=== PATIENT | male | born 1935 | race Caucasian/White ===

== ENCOUNTER 2016-10-22 13:24 | Outpatient (RCR) | payer OTHER, MEDICARE ==
--- OUTSIDE RECORDS SUMMARY | 2016-08-23 13:35 | XMS REPORT | Continuity of Care Document ---
Author Author [facility] Organization [facility] Address Unknown Phone Unavailable Care Team Providers Care Motor Vehicle Clerk Name Role Phone Светлана Wilson PCP [phone] Source Comments Some departments are not documenting in the electronic medical record. If you do not see the information that you expected, contact Release of Information in the Health Information Management department at [phone] for further assistance in locating additional records.[facility] Active Allergies and Adverse Reactions No Known Allergies Current Medications Prescription Sig. Disp. Refills Start End Date Status Date metoprolol (LOPRESSOR) 50 Take 25 mg by mouth twice Active mg tablet daily. insulin aspart (NOVOLOG) Inject 0-28 Units into 3 box 11/17/20 Active 100 unit/mL flexPEN area(s) as directed five 13 times daily. insulin glargine (LANTUS Inject 15 Units into 3 box 11/17/20 Active SOLOSTAR) 100 unit/mL (3 area(s) as directed at 13 mL) injection PEN bedtime daily. ipratropium (ATROVENT) Inhale 2.5 mL by mouth 1 Bottle 11/17/20 Active 0.02 % nebulizer solution every 6 hours as needed. 13 bisacodyl (DULCOLAX) 10 Insert or Apply 1 11/17/20 Active mg rectal suppository Suppository to rectal 13 area as directed daily. albuterol 0.5% Inhale 0.5 mL solution as 30 Vial 11/17/20 Active (PROVENTIL; VENTOLIN) 2.5 directed every 6 hours as 13 mg/0.5 mL nebu nebulizer needed. solution capsaicin 0.025 % topical Apply to affected area 1 Container 11/17/20 Active cream 13 famotidine (PEPCID) 40 2.5 mL by Per J Tube 1 Bottle 11/17/20 Active mg/5 mL susp oral route twice daily. 13 suspension lidocaine (LIDODERM) 5 % Apply to affected area, 30 Patch 11/17/20 Active topical patch 12 hours on, 12 hours off 13 ondansetron (ZOFRAN) 4 Administer 2 mL through 11/17/20 Active mg/2 mL soln vein every 6 hours as 13 needed. oxyCODone (ROXICODONE) 1 5-10 mL every 4 hours as 1 Bottle 3 11/17/20 Active mg/mL oral solution needed 13 tamsulosin (FLOMAX) 0.4 Take 1 Cap by mouth daily 90 Cap 11/17/20 Active mg capsule after breakfast. 13 warfarin (COUMADIN) 10 mg Take 0.5 Tabs by mouth at 90 Tab 0 11/17/20 Active tablet bedtime daily. 13 acetaminophen (TYLENOL) Take 500 mg by mouth Active 500 mg tablet every 6 hours as needed. Food Supplement, Take 65 mL by mouth three Active Lactose-Free (OSMOLITE 1 times daily. TIAGO) liqd cephalexin (KEFLEX) 500 Take 500 mg by mouth four Active mg capsule times daily. phenazopyridine Take 200 mg by mouth Active (PYRIDIUM) 200 mg tablet three times daily. Active Problems Problem Noted Date Esophageal cancer (HCC) 10/13/2013 Social History Tobacco Use Types Packs/Day Years Used Date Former Smoker Cigarettes 1 15 Quit: 11/18/1969 Smokeless Tobacco: Former Quit: User 11/18/1969 Alcohol Use Drinks/Week oz/Week Comments Yes 1 Cans of 0.6 occasionally beer Last Filed Vital Signs Vital Sign Reading Time Taken Blood Pressure 144/85 12/29/2013 11:16 AM SHOP SUPERVISOR Pulse 55 12/29/2013 11:16 AM SHOP SUPERVISOR Temperature 36.3 C (97.4 F) 12/29/2013 11:16 AM SHOP SUPERVISOR Respiratory Rate - - Height 1.829 m (6' 0.01") 01/01/2014 4:00 PM SHOP SUPERVISOR Weight 92.806 kg (204 lb 9.6 oz) 01/01/2014 4:00 PM SHOP SUPERVISOR Body Mass Index 27.74 01/01/2014 4:00 PM SHOP SUPERVISOR Oxygen Saturation 94% 12/29/2013 11:16 AM SHOP SUPERVISOR Plan of Care Health Maintenance Due Date Last Done Comments Physical (Comprehensive) 1942 Exam Pertussis Vaccine 1946 Tetanus Vaccine 1952 Shingles Vaccine 1995 Prevnar/Pneumovax (#1) 2000 Influenza Vaccine 07/19/2016 Results from Last 3 Months Not on file
[2016-08-23 13:48] LABS: BASOPHILS % (AUTO) 0 % (0-10); EOSINOPHILS # (AUTO) 0.1 10^3/uL (0.0-0.3); EOSINOPHILS % (AUTO) 1 % (0-10); LYMPHOCYTES # (AUTO) 0.6 X 10^3 (1.0-4.0); LYMPHOCYTES % (AUTO) 18 % (12-44); MEAN CORPUSCULAR HEMOGLOBIN 32 PG (25-34); MEAN CORPUSCULAR HGB CONC 33 G/DL (32-36); MEAN CORPUSCULAR VOLUME 95 FL (80-99); MEAN PLATELET VOLUME 8.8 FL (7.4-10.4); MONOCYTES # (AUTO) 0.3 X 10^3 (0.0-1.0); MONOCYTES % (AUTO) 9 % (0-12); NEUTROPHILS # (AUTO) 2.6 X 10^3 (1.8-7.8); NEUTROPHILS % (AUTO) 72 % (42-75); PLATELET COUNT 149 10^3/uL (130-400); RED BLOOD COUNT 3.95 10^6/uL (4.35-5.85); RED CELL DISTRIBUTION WIDTH 16.7 % (10.0-14.5); WHITE BLOOD COUNT 3.6 10^3/uL (4.3-11.0)
[2016-08-23 14:27] LABS: ANION GAP 10 MMOL/L (5-14); BLOOD UREA NITROGEN 20 MG/DL (7-18); BUN/CREATININE RATIO 20; CALCIUM 8.6 MG/DL (8.5-10.1); CARBON DIOXIDE 21 MMOL/L (21-32); CHLORIDE 109 MMOL/L (98-107); CREATININE SERUM 1.01 MG/DL (0.60-1.30); GFR ESTIMATED > 60; GLUCOSE 210 MG/DL (70-105); POTASSIUM 4.3 MMOL/L (3.6-5.0); SODIUM 140 MMOL/L (135-145)
[2016-08-30 08:55] LABS: BASOPHILS % (AUTO) 0 % (0-10); EOSINOPHILS # (AUTO) 0.1 10^3/uL (0.0-0.3); EOSINOPHILS % (AUTO) 2 % (0-10); LYMPHOCYTES # (AUTO) 0.7 X 10^3 (1.0-4.0); LYMPHOCYTES % (AUTO) 19 % (12-44); MEAN CORPUSCULAR HEMOGLOBIN 33 PG (25-34); MEAN CORPUSCULAR HGB CONC 34 G/DL (32-36); MEAN CORPUSCULAR VOLUME 96 FL (80-99); MEAN PLATELET VOLUME 8.6 FL (7.4-10.4); MONOCYTES # (AUTO) 0.3 X 10^3 (0.0-1.0); MONOCYTES % (AUTO) 9 % (0-12); NEUTROPHILS # (AUTO) 2.4 X 10^3 (1.8-7.8); NEUTROPHILS % (AUTO) 69 % (42-75); PLATELET COUNT 160 10^3/uL (130-400); RED BLOOD COUNT 3.83 10^6/uL (4.35-5.85); RED CELL DISTRIBUTION WIDTH 17.4 % (10.0-14.5); WHITE BLOOD COUNT 3.4 10^3/uL (4.3-11.0)
[2016-08-30 09:17] LABS: ANION GAP 8 MMOL/L (5-14); BLOOD UREA NITROGEN 20 MG/DL (7-18); BUN/CREATININE RATIO 21; CALCIUM 8.6 MG/DL (8.5-10.1); CARBON DIOXIDE 24 MMOL/L (21-32); CHLORIDE 109 MMOL/L (98-107); CREATININE SERUM 0.95 MG/DL (0.60-1.30); GFR ESTIMATED > 60; GLUCOSE 172 MG/DL (70-105); POTASSIUM 3.9 MMOL/L (3.6-5.0); SODIUM 141 MMOL/L (135-145)
[2016-09-06 09:16] LABS: BASOPHILS % (AUTO) 1 % (0-10); EOSINOPHILS # (AUTO) 0.1 10^3/uL (0.0-0.3); EOSINOPHILS % (AUTO) 2 % (0-10); LYMPHOCYTES # (AUTO) 0.5 X 10^3 (1.0-4.0); LYMPHOCYTES % (AUTO) 12 % (12-44); MEAN CORPUSCULAR HEMOGLOBIN 33 PG (25-34); MEAN CORPUSCULAR HGB CONC 34 G/DL (32-36); MEAN CORPUSCULAR VOLUME 97 FL (80-99); MEAN PLATELET VOLUME 9.3 FL (7.4-10.4); MONOCYTES # (AUTO) 0.4 X 10^3 (0.0-1.0); MONOCYTES % (AUTO) 10 % (0-12); NEUTROPHILS # (AUTO) 3.3 X 10^3 (1.8-7.8); NEUTROPHILS % (AUTO) 76 % (42-75); PLATELET COUNT 143 10^3/uL (130-400); RED BLOOD COUNT 3.83 10^6/uL (4.35-5.85); RED CELL DISTRIBUTION WIDTH 17.7 % (10.0-14.5); WHITE BLOOD COUNT 4.3 10^3/uL (4.3-11.0)
[2016-09-06 09:35] LABS: ALANINE AMINOTRANSFERASE 14 U/L (0-55); ALBUMIN 3.6 G/DL (3.2-4.5); ANION GAP 8 MMOL/L (5-14); ASPARTATE AMINO TRANSFERASE 18 U/L (5-34); BILIRUBIN,TOTAL 0.8 MG/DL (0.1-1.0); BLOOD UREA NITROGEN 17 MG/DL (7-18); BUN/CREATININE RATIO 20; CALCIUM 8.5 MG/DL (8.5-10.1); CARBON DIOXIDE 22 MMOL/L (21-32); CHLORIDE 111 MMOL/L (98-107); CREATININE SERUM 0.83 MG/DL (0.60-1.30); GFR ESTIMATED > 60; GLUCOSE 138 MG/DL (70-105); POTASSIUM 3.9 MMOL/L (3.6-5.0); SODIUM 141 MMOL/L (135-145); TOTAL PROTEIN 6.2 G/DL (6.4-8.2)
[2016-09-13 10:15] LABS: BASOPHILS % (AUTO) 0 % (0-10); EOSINOPHILS # (AUTO) 0.1 10^3/uL (0.0-0.3); EOSINOPHILS % (AUTO) 1 % (0-10); LYMPHOCYTES # (AUTO) 0.7 X 10^3 (1.0-4.0); LYMPHOCYTES % (AUTO) 13 % (12-44); MEAN CORPUSCULAR HEMOGLOBIN 32 PG (25-34); MEAN CORPUSCULAR HGB CONC 33 G/DL (32-36); MEAN CORPUSCULAR VOLUME 96 FL (80-99); MEAN PLATELET VOLUME 9.4 FL (7.4-10.4); MONOCYTES # (AUTO) 0.5 X 10^3 (0.0-1.0); MONOCYTES % (AUTO) 10 % (0-12); NEUTROPHILS % (AUTO) 75 % (42-75); PLATELET COUNT 160 10^3/uL (130-400); RED CELL DISTRIBUTION WIDTH 17.3 % (10.0-14.5); WHITE BLOOD COUNT 5.3 10^3/uL (4.3-11.0)
[2016-09-13 10:37] LABS: ANION GAP 3 MMOL/L (5-14); BLOOD UREA NITROGEN 17 MG/DL (7-18); BUN/CREATININE RATIO 21; CALCIUM 8.4 MG/DL (8.5-10.1); CARBON DIOXIDE 28 MMOL/L (21-32); CHLORIDE 107 MMOL/L (98-107); CREATININE SERUM 0.82 MG/DL (0.60-1.30); GFR ESTIMATED > 60; GLUCOSE 115 MG/DL (70-105); POTASSIUM 4.1 MMOL/L (3.6-5.0); SODIUM 138 MMOL/L (135-145)
[2016-09-20 13:11] LABS: BASOPHILS % (AUTO) 1 % (0-10); EOSINOPHILS # (AUTO) 0.1 10^3/uL (0.0-0.3); EOSINOPHILS % (AUTO) 3 % (0-10); LYMPHOCYTES # (AUTO) 0.6 X 10^3 (1.0-4.0); LYMPHOCYTES % (AUTO) 14 % (12-44); MEAN CORPUSCULAR HEMOGLOBIN 32 PG (25-34); MEAN CORPUSCULAR HGB CONC 34 G/DL (32-36); MEAN CORPUSCULAR VOLUME 96 FL (80-99); MEAN PLATELET VOLUME 8.8 FL (7.4-10.4); MONOCYTES # (AUTO) 0.2 X 10^3 (0.0-1.0); MONOCYTES % (AUTO) 6 % (0-12); NEUTROPHILS # (AUTO) 3.1 X 10^3 (1.8-7.8); NEUTROPHILS % (AUTO) 77 % (42-75); PLATELET COUNT 193 10^3/uL (130-400); RED BLOOD COUNT 3.67 10^6/uL (4.35-5.85); RED CELL DISTRIBUTION WIDTH 16.2 % (10.0-14.5); WHITE BLOOD COUNT 4.1 10^3/uL (4.3-11.0)
[2016-09-20 13:33] LABS: ANION GAP 6 MMOL/L (5-14); BLOOD UREA NITROGEN 18 MG/DL (7-18); BUN/CREATININE RATIO 18; CALCIUM 8.3 MG/DL (8.5-10.1); CARBON DIOXIDE 23 MMOL/L (21-32); CHLORIDE 110 MMOL/L (98-107); CREATININE SERUM 0.99 MG/DL (0.60-1.30); GFR ESTIMATED > 60; GLUCOSE 188 MG/DL (70-105); POTASSIUM 3.9 MMOL/L (3.6-5.0); SODIUM 139 MMOL/L (135-145)
[2016-09-27 10:52] LABS: BASOPHILS % (AUTO) 0 % (0-10); EOSINOPHILS # (AUTO) 0.2 10^3/uL (0.0-0.3); EOSINOPHILS % (AUTO) 6 % (0-10); LYMPHOCYTES # (AUTO) 0.6 X 10^3 (1.0-4.0); LYMPHOCYTES % (AUTO) 14 % (12-44); MEAN CORPUSCULAR HEMOGLOBIN 33 PG (25-34); MEAN CORPUSCULAR HGB CONC 34 G/DL (32-36); MEAN CORPUSCULAR VOLUME 97 FL (80-99); MONOCYTES # (AUTO) 0.3 X 10^3 (0.0-1.0); MONOCYTES % (AUTO) 8 % (0-12); NEUTROPHILS # (AUTO) 2.9 X 10^3 (1.8-7.8); NEUTROPHILS % (AUTO) 72 % (42-75); PLATELET COUNT 194 10^3/uL (130-400); RED CELL DISTRIBUTION WIDTH 16.9 % (10.0-14.5)
[2016-09-27 11:56] LABS: ANION GAP 6 MMOL/L (5-14); BLOOD UREA NITROGEN 15 MG/DL (7-18); BUN/CREATININE RATIO 18; CALCIUM 8.5 MG/DL (8.5-10.1); CARBON DIOXIDE 26 MMOL/L (21-32); CHLORIDE 110 MMOL/L (98-107); CREATININE SERUM 0.85 MG/DL (0.60-1.30); GFR ESTIMATED > 60; GLUCOSE 81 MG/DL (70-105); POTASSIUM 3.9 MMOL/L (3.6-5.0); SODIUM 142 MMOL/L (135-145)
[2016-10-04 14:10] LABS: BASOPHILS % (AUTO) 1 % (0-10); EOSINOPHILS # (AUTO) 0.2 10^3/uL (0.0-0.3); EOSINOPHILS % (AUTO) 6 % (0-10); LYMPHOCYTES # (AUTO) 0.7 X 10^3 (1.0-4.0); LYMPHOCYTES % (AUTO) 20 % (12-44); MEAN CORPUSCULAR HEMOGLOBIN 32 PG (25-34); MEAN CORPUSCULAR HGB CONC 34 G/DL (32-36); MEAN CORPUSCULAR VOLUME 96 FL (80-99); MEAN PLATELET VOLUME 8.8 FL (7.4-10.4); MONOCYTES # (AUTO) 0.4 X 10^3 (0.0-1.0); MONOCYTES % (AUTO) 12 % (0-12); NEUTROPHILS # (AUTO) 2.1 X 10^3 (1.8-7.8); NEUTROPHILS % (AUTO) 62 % (42-75); PLATELET COUNT 147 10^3/uL (130-400); RED BLOOD COUNT 3.55 10^6/uL (4.35-5.85); RED CELL DISTRIBUTION WIDTH 16.6 % (10.0-14.5); WHITE BLOOD COUNT 3.4 10^3/uL (4.3-11.0)
[2016-10-04 15:08] LABS: ALANINE AMINOTRANSFERASE 23 U/L (0-55); ALBUMIN 3.3 G/DL (3.2-4.5); ANION GAP 7 MMOL/L (5-14); ASPARTATE AMINO TRANSFERASE 23 U/L (5-34); BILIRUBIN,TOTAL 0.4 MG/DL (0.1-1.0); BLOOD UREA NITROGEN 15 MG/DL (7-18); BUN/CREATININE RATIO 18; CALCIUM 8.2 MG/DL (8.5-10.1); CARBON DIOXIDE 24 MMOL/L (21-32); CHLORIDE 110 MMOL/L (98-107); CREATININE SERUM 0.85 MG/DL (0.60-1.30); GFR ESTIMATED > 60; GLUCOSE 157 MG/DL (70-105); MAGNESIUM 1.8 MG/DL (1.8-2.4); POTASSIUM 3.8 MMOL/L (3.6-5.0); SODIUM 141 MMOL/L (135-145); TOTAL PROTEIN 5.9 G/DL (6.4-8.2)
[2016-10-10 08:16] LABS: BASOPHILS % (AUTO) 0 % (0-10); EOSINOPHILS # (AUTO) 0.2 10^3/uL (0.0-0.3); EOSINOPHILS % (AUTO) 5 % (0-10); LYMPHOCYTES # (AUTO) 0.5 X 10^3 (1.0-4.0); LYMPHOCYTES % (AUTO) 16 % (12-44); MEAN CORPUSCULAR HEMOGLOBIN 32 PG (25-34); MEAN CORPUSCULAR HGB CONC 34 G/DL (32-36); MEAN CORPUSCULAR VOLUME 96 FL (80-99); MEAN PLATELET VOLUME 8.9 FL (7.4-10.4); MONOCYTES # (AUTO) 0.2 X 10^3 (0.0-1.0); MONOCYTES % (AUTO) 7 % (0-12); NEUTROPHILS # (AUTO) 2.3 X 10^3 (1.8-7.8); NEUTROPHILS % (AUTO) 71 % (42-75); PLATELET COUNT 166 10^3/uL (130-400); RED BLOOD COUNT 3.75 10^6/uL (4.35-5.85); RED CELL DISTRIBUTION WIDTH 15.8 % (10.0-14.5); WHITE BLOOD COUNT 3.2 10^3/uL (4.3-11.0)
[2016-10-10 08:34] LABS: ANION GAP 7 MMOL/L (5-14); BLOOD UREA NITROGEN 18 MG/DL (7-18); BUN/CREATININE RATIO 20; CALCIUM 8.6 MG/DL (8.5-10.1); CARBON DIOXIDE 21 MMOL/L (21-32); CHLORIDE 109 MMOL/L (98-107); CREATININE SERUM 0.92 MG/DL (0.60-1.30); GFR ESTIMATED > 60; GLUCOSE 163 MG/DL (70-105); POTASSIUM 3.9 MMOL/L (3.6-5.0); SODIUM 137 MMOL/L (135-145)
[~2016-10-22] VITALS: Ht 182.9 cm; Wt 100.7 kg
[~2016-10-22 13:24] MED LIST: ATROPINE INJ 0.4 MG/ML SDV (CANCER CENTER) INJ SCH; D5W IV SCH; FAMOTIDINE 20MG/2ML IV (CANCER CTR) IV SCH; IRINOTECAN HCL IV SCH; LISI-596 PO; LISI1TAB6 PO; MECL25TA56 PO; NS IV 1000 ML (CANCER CTR) IV SCH; NS IV 500 ML (CANCER CENTER) 500 ML ONE; ONDANSETRON MDV (CANCER CENTER 16 MG, DEXAMETHASONE PF INJ (CANCER C 8 MG in NS (IVPB) ... IV SCH
[2016-10-22 14:01] LABS: BASOPHILS % (AUTO) 0 % (0-10); EOSINOPHILS # (AUTO) 0.1 10^3/uL (0.0-0.3); EOSINOPHILS % (AUTO) 4 % (0-10); LYMPHOCYTES # (AUTO) 0.5 X 10^3 (1.0-4.0); LYMPHOCYTES % (AUTO) 16 % (12-44); MEAN CORPUSCULAR HEMOGLOBIN 33 PG (25-34); MEAN CORPUSCULAR HGB CONC 34 G/DL (32-36); MEAN CORPUSCULAR VOLUME 97 FL (80-99); MEAN PLATELET VOLUME 8.1 FL (7.4-10.4); MONOCYTES # (AUTO) 0.4 X 10^3 (0.0-1.0); MONOCYTES % (AUTO) 11 % (0-12); NEUTROPHILS # (AUTO) 2.3 X 10^3 (1.8-7.8); NEUTROPHILS % (AUTO) 69 % (42-75); PLATELET COUNT 187 10^3/uL (130-400); RED BLOOD COUNT 3.52 10^6/uL (4.35-5.85); RED CELL DISTRIBUTION WIDTH 17.1 % (10.0-14.5); WHITE BLOOD COUNT 3.3 10^3/uL (4.3-11.0)
[2016-10-22 14:35] LABS: ALANINE AMINOTRANSFERASE 20 U/L (0-55); ALBUMIN 3.3 G/DL (3.2-4.5); ANION GAP 9 MMOL/L (5-14); ASPARTATE AMINO TRANSFERASE 20 U/L (5-34); BILIRUBIN,TOTAL 0.5 MG/DL (0.1-1.0); BLOOD UREA NITROGEN 17 MG/DL (7-18); BUN/CREATININE RATIO 20; CALCIUM 8.2 MG/DL (8.5-10.1); CARBON DIOXIDE 24 MMOL/L (21-32); CHLORIDE 113 MMOL/L (98-107); CREATININE SERUM 0.84 MG/DL (0.60-1.30); GFR ESTIMATED > 60; GLUCOSE 153 MG/DL (70-105); MAGNESIUM 1.7 MG/DL (1.8-2.4); POTASSIUM 3.3 MMOL/L (3.6-5.0); SODIUM 146 MMOL/L (135-145); TOTAL PROTEIN 5.8 G/DL (6.4-8.2)
== END 2016-11-21 | disposition home or self-care (01) ==
LOC: ONC 13:24
PROVIDERS: ATTEND Internal Medicine Hematology & Oncology
DX: Z51.11 Encounter for antineoplastic chemotherapy (principal); C15.5 Malignant neoplasm of lower third of esophagus; K21.9 Gastro-esophageal reflux disease without esophagitis; R49.0 Dysphonia; M19.90 Unspecified osteoarthritis, unspecified site; Z79.899 Other long term (current) drug therapy
CPT/HCPCS: 36415; 36591; 80048; 80053; 82378; 83735; 85025; 93005; 96375; 96413; 96415; 99213

== ENCOUNTER 2016-11-23 12:04 | Inpatient (IN) | payer MEDICARE, OTHER ==
[~2016-11-23] VITALS: Ht 182.9 cm; Wt 87.1 kg
[~2016-11-23 12:04] MED LIST changes: -ATROPINE INJ 0.4 MG/ML SDV (CANCER CENTER) INJ SCH; -D5W IV SCH; -FAMOTIDINE 20MG/2ML IV (CANCER CTR) IV SCH; -IRINOTECAN HCL IV SCH; -NS IV 1000 ML (CANCER CTR) IV SCH; -NS IV 500 ML (CANCER CENTER) 500 ML ONE; -ONDANSETRON MDV (CANCER CENTER 16 MG, DEXAMETHASONE PF INJ (CANCER C 8 MG in NS (IVPB) ... IV SCH
--- OUTSIDE RECORDS SUMMARY | 2016-11-23 12:12 | XMS REPORT | Continuity of Care Document ---
Author Author [facility] Organization [facility] Address Unknown Phone Unavailable Care Team Providers Care Supervisor Vacuum Metalizing Name Role Phone Светлана Wilson PCP [phone] Source Comments Some departments are not documenting in the electronic medical record. If you do not see the information that you expected, contact Release of Information in the Health Information Management department at [phone] for further assistance in locating additional records.[facility] Active Allergies and Adverse Reactions No Known [...] Taken Blood Pressure 144/85 12/29/2013 11:16 AM IT BUSINESS PROCESS ARCHITECT Pulse 55 12/29/2013 11:16 AM IT BUSINESS PROCESS ARCHITECT Temperature 36.3 C (97.4 F) 12/29/2013 11:16 AM IT BUSINESS PROCESS ARCHITECT Respiratory Rate - - Height 1.829 m (6' 0.01") 01/01/2014 4:00 PM IT BUSINESS PROCESS ARCHITECT Weight 92.806 kg (204 lb 9.6 oz) 01/01/2014 4:00 PM IT BUSINESS PROCESS ARCHITECT Body Mass Index 27.74 01/01/2014 4:00 PM IT BUSINESS PROCESS ARCHITECT Oxygen Saturation 94% 12/29/2013 11:16 AM IT BUSINESS PROCESS ARCHITECT Plan of Care Health Maintenance Due Date Last Done Comments Physical (Comprehensive) 1942 Exam Pertussis Vaccine 1946 Tetanus Vaccine 1952 Shingles Vaccine 1995 Prevnar/Pneumovax (#1) 2000 Influenza Vaccine 07/19/2016 Results from Last 3 Months Not on file
[2016-11-23 12:42] LABS: BASOPHILS % (AUTO) 0 % (0-10); EOSINOPHILS % (AUTO) 0 % (0-10); LYMPHOCYTES # (AUTO) 0.4 X 10^3 (1.0-4.0); LYMPHOCYTES % (AUTO) 3 % (12-44); MEAN CORPUSCULAR HEMOGLOBIN 31 PG (25-34); MEAN CORPUSCULAR HGB CONC 33 G/DL (32-36); MEAN CORPUSCULAR VOLUME 95 FL (80-99); MEAN PLATELET VOLUME 8.4 FL (7.4-10.4); MONOCYTES # (AUTO) 0.5 X 10^3 (0.0-1.0); MONOCYTES % (AUTO) 5 % (0-12); NEUTROPHILS # (AUTO) 9.9 X 10^3 (1.8-7.8); NEUTROPHILS % (AUTO) 92 % (42-75); PLATELET COUNT 254 10^3/uL (130-400); RED CELL DISTRIBUTION WIDTH 14.5 % (10.0-14.5); WHITE BLOOD COUNT 10.8 10^3/uL (4.3-11.0)
[2016-11-23] MEDS ORDERED: NS IV 1000 ML 1,000 ML IV SCH (12:45)
[2016-11-23] MEDS ORDERED: ACETAMINOPHEN 650 MG SUPP (TYLENOL) PR ONE (12:45)
[2016-11-23 13:00] LABS: ALANINE AMINOTRANSFERASE 11 U/L (0-55); ALBUMIN 3.5 G/DL (3.2-4.5); ANION GAP 10 MMOL/L (5-14); ASPARTATE AMINO TRANSFERASE 12 U/L (5-34); BLOOD UREA NITROGEN 16 MG/DL (7-18); BUN/CREATININE RATIO 18; CALCIUM 8.7 MG/DL (8.5-10.1); CARBON DIOXIDE 24 MMOL/L (21-32); CHLORIDE 104 MMOL/L (98-107); GFR ESTIMATED > 60; GLUCOSE 133 MG/DL (70-105); POTASSIUM 3.9 MMOL/L (3.6-5.0); SODIUM 138 MMOL/L (135-145); TOTAL PROTEIN 6.7 G/DL (6.4-8.2)
--- NOTE | 2016-11-23 13:00 | ED Cough/URI ---
General Chief Complaint: Respiratory Problems Stated Complaint: DIFF SWALLOWING/EATING Nursing Triage Note: PT TO ED 6 W/ FOR C/O SOA ONSET YESTERDAY. PT REPORTS HE WAS SEEN AT THE [place] [facility] DA[place] AGO ET HAD EGD DONE FOR EVALUATION OF ESOPHAGEAL CA. PT ALSO REPORTS HE'S UNABLE TO KEEP FOOD DOWN AT THIS TIME. Source: patient Exam Limitations: no limitations History of Present Illness Time seen by provider: 13:00 Initial Comments To ER from home with reports of shortness of breath and cough that began yesterday. He was seen at the [place] 3 days ago for EGD to evaluate his esophageal cancer. He's had esophageal cancer treated with surgery in 2012 at [facility]. The goal of the EGD was to determine whether or not esophageal stenting could be performed and it was ultimately decided that could not. Upon arrival to ER he is febrile at 101 with a terrible cough. He states that in the event of cardiac or respiratory arrest he is not interested in intubation/ventilation or CPR. He states that his primary care is the [place] in [facility] and Dr. Palmer. Timing/Duration: constant Severity/Quality: moderate Associated Symptoms: cough Allergies and Home Medications Allergies Coded Allergies: No Known Drug Allergies (Unverified , 04/08/12) Home Medications Hctz/Lisinopril 1 Each Tablet 1 EACH PO DAILY (Reported) Meclizine Hcl 25 Mg Tablet #30 1 EACH PO QID PRN (Reported) NEW SCRIPT TAKE ONE TAB 4 X DAILY ASNEDED FOR DIZZINESS Constitutional: see HPI chills fever EENTM: see HPI Respiratory: see HPI cough short of breath Cardiovascular: no symptoms reported Genitourinary: no symptoms reported Musculoskeletal: no symptoms reported Skin: no symptoms reported Psychiatric/Neurological: No Symptoms Reported Hematologic/Lymphatic: No Symptoms Reported Past Sezesap-Tdixep-Jaoscd Hx Patient Social History Alcohol Use: Occasionally Uses Recreational Drug Use: No Smoking Status: Former Smoker Recent Foreign Travel: No Contact w/Someone Who Travel: No Recent Infectious Disease Expo: No Recent Hopitalizations: Yes Physical Abuse Screen: No Sexual Abuse: No Immunizations Up To Date Date of Pneumonia Vaccine: Jul 19, 2014 Surgeries HX Surgeries: Yes (knee replacement 12 yrs ago, LAP HERNIA WITH MESH 04/07/2015 ) Surgeries: Abdominal Respiratory Hx Respiratory Disorders: No Cardiovascular Hx Cardiac Disorders: No Neurological Hx Neurological Disorders: No Reproductive System Hx Reproductive Disorders: No Genitourinary Hx Genitourinary Disorders: No Gastrointestinal Hx Gastrointestinal Disorders: Yes (ESOPHAGEAL CA, DX 2 YEARS AGO) Musculoskeletal Hx Musculoskeletal Disorders: Yes (ATHRITIS IN HANDS) Musculoskeletal Disorders: Arthritis Endocrine Hx Endocrine Disorders: No HEENT HX ENT Disorders: No Cancer Hx Cancer: Yes Cancer: Esophageal Psychosocial Hx Psychiatric Problems: No Blood Transfusions Hx Blood Disorders: No Adverse Reaction to a Blood Tr: No Physical Exam Vital Signs Vital Sign - Last 12Hours 11/23/16 12:22 Temp 101.2 Pulse 119 Resp 24 B/P 124/81 Pulse Ox 90 O2 Delivery Room Air Capillary Refill : Less Than 3 Seconds General Appearance: WD/WN no apparent distress Eyes: Bilateral Eye EOMI, Bilateral Eye Normal Inspection, Bilateral Eye PERRL HEENT: PERRL/EOMI normal ENT inspection Neck: non-tender full range of motion Respiratory: no accessory muscle use rhonchi other (coughing up copious amounts of sputum) Gastrointestinal: non tender soft Extremities: normal range of motion non-tender Neurologic/Psychiatric: alert normal mood/affect oriented x 3 Progress/Results/Core Measures Results/Orders Lab Results Laboratory Tests Test 11/23/16 12:30 Range/Units Alanine Aminotransferase (ALT/SGPT) 11 0-55 U/L Albumin 3.5 3.2-4.5 G/DL Alkaline Phosphatase 65 40-136 U/L Anion Gap 10 5-14 MMOL/L Aspartate Amino Transf (AST/SGOT) 12 5-34 U/L BUN/Creatinine Ratio 18 Band Neutrophils 8 % Basophils # (Auto) 0.0 0.0-0.1 10^3/uL Basophils % (Manual) 0 % Basophils (%) (Auto) 0 0-10 % Blood Urea Nitrogen 16 7-18 MG/DL Calcium Level 8.7 8.5-10.1 MG/DL Carbon Dioxide Level 24 21-32 MMOL/L Chloride Level 104 98-107 MMOL/L Creatinine 0.90 0.60-1.30 MG/DL Elliptocytes SLIGHT Eosinophils # (Auto) 0.0 0.0-0.3 10^3/uL Eosinophils % (Manual) 0 % Eosinophils (%) (Auto) 0 0-10 % Estimat Glomerular Filtration Rate > 60 Glucose Level 133 H 70-105 MG/DL Hematocrit 37 L 40-54 % Hemoglobin 12.2 L 13.3-17.7 G/DL Lactic Acid Level 1.5 0.5-2.0 MMOL/L Lymphocytes # (Auto) 0.4 L 1.0-4.0 X 10^3 Lymphocytes % (Manual) 3 % Lymphocytes (%) (Auto) 3 L 12-44 % Mean Corpuscular Hemoglobin 31 25-34 PG Mean Corpuscular Hemoglobin Concent 33 32-36 G/DL Mean Corpuscular Volume 95 80-99 FL Mean Platelet Volume 8.4 7.4-10.4 FL Monocytes # (Auto) 0.5 0.0-1.0 X 10^3 Monocytes % (Manual) 3 % Monocytes (%) (Auto) 5 0-12 % Neutrophils # (Auto) 9.9 H 1.8-7.8 X 10^3 Neutrophils % (Manual) 86 % Neutrophils (%) (Auto) 92 H 42-75 % Platelet Count 254 130-400 10^3/uL Potassium Level 3.9 3.6-5.0 MMOL/L Red Blood Count 3.90 L 4.35-5.85 10^6/uL Red Cell Distribution Width 14.5 10.0-14.5 % Sodium Level 138 135-145 MMOL/L Total Bilirubin 1.0 0.1-1.0 MG/DL Total Protein 6.7 6.4-8.2 G/DL White Blood Count 10.8 4.3-11.0 10^3/uL Micro Results Microbiology 11/23/16 Influenza Types A,B Antigen (MEHUL) - Final, Complete My Orders Orders-KHLOE SUAREZ APRN Cbc With Automated Diff (11/23/16 12:37) Saline Lock/Iv-Start (11/23/16 12:37) Comprehensive Metabolic Panel (11/23/16 12:37) Blood Culture (11/23/16 12:37) Lactic Acid Analyzer (11/23/16 12:37) Acetaminophen Suppository (Tylenol Suppo (11/23/16 12:45) Ns Iv 1000 Ml (Sodium Chloride 0.9%) (11/23/16 12:45) Manual Differential (11/23/16 12:30) Chest 1 View, Ap/Pa Only (11/23/16 12:59) Sputum Culture (11/23/16 13:03) Piperacillin Sodium/Tazobactam (Zosyn Vi (11/23/16 13:30) Influenza A And B Antigens (11/23/16 13:27) Normal Saline (Harrington Mini) (Ns (Harrington (11/23/16 13:26) Piperacillin Sodium/Tazobactam (Zosyn Vi (11/23/16 13:26) Medications Given in ED Current Medications Medications Dose Ordered Sig/Lacey Route Start Time Stop Time Status Last Admin Dose Admin Acetaminophen 650 mg 650 mg ONCE ONCE NJ 11/23/16 12:45 11/23/16 12:46 DC 11/23/16 12:47 650 MG Piperacillin Sod/ Tazobactam Sod/ Sodium Chloride 100 ml @ 200 mls/hr ONCE ONCE IV 11/23/16 13:30 11/23/16 13:59 11/23/16 13:42 200 MLS/HR Vital Signs/I&O Vital Sign - Last 12Hours 11/23/16 12:22 Temp 101.2 Pulse 119 Resp 24 B/P 124/81 Pulse Ox 90 O2 Delivery Room Air Blood Pressure Mean: 95 Diagnostic Imaging Diagonstic Imaging: CT Comments NAME: MARIAMA DARLING [facility] REC#: [id number] PT STATUS: REG ER : 1935 PHYSICIAN: KHLOE SUAREZ APRN ADMIT DATE: 11/23/16/ER Draft Date of Exam:11/23/16 CHEST 1 VIEW, AP/PA ONLY INDICATION: Cough, choking. History of esophageal cancer. Frontal chest obtained at 1:03 p.m. and compared to 04/08/2012. Heart is normal in size. There is widening of the superior mediastinum. This correlates with a large superior mediastinal mass visualized on 10/18/2016. There is some linear scarring or atelectasis in the left base. There is some early infiltrate versus atelectasis in the right base. There is no pneumothorax or pleural fluid collection. Port-A-Cath is seen over the left chest with tip overlying the low SVC. IMPRESSION: Linear scarring or atelectasis in the left base. Mild infiltrate versus atelectasis in right lateral base. Widening of superior mediastinum compatible with known mediastinal mass. Dictated on workstation # [id number] Dict: 11/23/16 1309 Trans: 11/23/16 1318 [id number] Interpreted by: BRITTANY ALEX MD Electronically signed by: Departure Communication Time/Spoke to Admitting Phy: 14:03 Communication I discussed the case with Dr. Miller who would strongly recommend that I admit the patient for IV antibiotics. I did discuss with the patient his poor prognosis given the pulmonary nodules concerning for metastasis on October CT. He is aware of this. They are open to the idea of palliative care and would like to know more about this. Progress Notes CT report from October 2016: IMPRESSION: 1. The appearance of the chest has worsened since the prior exam as there does seem to be greater thickening of the wall of the body of stomach in the mediastinum. This does suggest an infiltrative neoplastic process. The pulmonary nodules in lung bases seen previously have also increased in size and number and these too should be considered neoplastic in nature. Recommendations as above. 2. There is no acute cardiopulmonary abnormality noted. 3. The appearance of the abdomen is stable when compared to the prior exam. There is no sign of an acute abdominal abnormality or of neoplastic disease. 4. These results were discussed with CARLO Padilla. Impression Impression: Primary Impression: Aspiration pneumonia Additional Impression: Esophageal cancer Qualified Code: C15.9 - Malignant neoplasm of esophagus, unspecified Disposition: ADMITTED INPATIENT Condition: Unchanged Departure-Patient Inst. Referrals: KAYLA FUNEZ MD (PCP/Family) Primary Care Physician KHLOE SUAREZ APRN Nov 23, 2016 13:00
[2016-11-23 13:05] LABS: NEUTROPHILS % (MANUAL) 86 %
[2016-11-23 13:06] LABS: BAND NEUTROPHILS 8 %; BASOPHILS % (MANUAL) 0 %; EOSINOPHILS % (MANUAL) 0 %; LYMPHOCYTES % (MANUAL) 3 %
--- NOTE | 2016-11-23 13:18 | Diagnostic Imaging Report ---
INDICATION: Cough, choking. History of esophageal cancer. Frontal chest obtained at 1:03 p.m. and compared to 04/08/2012. Heart is normal in size. There is widening of the superior mediastinum. This correlates with a large superior mediastinal mass visualized on 10/18/2016. There is some linear scarring or atelectasis in the left base. There is some early infiltrate versus atelectasis in the right base. There is no pneumothorax or pleural fluid collection. Port-A-Cath is seen over the left chest with tip overlying the low SVC. IMPRESSION: Linear scarring or atelectasis in the left base. Mild infiltrate versus atelectasis in right lateral base. Widening of superior mediastinum compatible with known mediastinal mass. Dictated by: Dictated on workstation # [id number]
[2016-11-23] MEDS ORDERED: PIPERACILLIN/TAZO 4.5 GM VIAL (ZOSYN) IV ONE (13:26)
[2016-11-23] MEDS ORDERED: NORMAL SALINE (BAXTER MINI) 100 ML IV ONE (13:26)
[2016-11-23] MEDS ORDERED: PIPERACILLIN SODIUM/TAZOBACTAM 4.5 GM in NORMAL SALINE (BAXTER MINI) 100 ML IV ONE (13:30)
[2016-11-23 14:30] VITALS: BP 147/70
[2016-11-23] MEDS ORDERED: VANCOMYCIN 2000 MG/NS 500 ML IVPB IV NR ×2 (15:00)
[2016-11-23] MEDS: NS IV 1000 ML 1,000 ML IV SCH ×2 (15:09→23:15)
[2016-11-23] MEDS ORDERED: ACETAMINOPHEN 650 MG SUPP (TYLENOL) PR PRN (15:15)
[2016-11-23] MEDS ORDERED: CATHETER FLUSH 10 ML SYR IV PRN (15:15)
[2016-11-23 15:35] VITALS: BP 127/77
[2016-11-23] MEDS ORDERED: ACET-93 PO (15:56)
[2016-11-23] MEDS: LEVOFLOXACIN 750 MG/D5W 150 ML PRE-MIX IV SCH (18:32)
[2016-11-23] MEDS: RT-ALBUTEROL/IPRATROPIUM 3 ML (DUONEB) VIAL INH SCH ×2 (18:50→22:24)
[2016-11-23 19:20] VITALS: BP 147/85
[2016-11-23] MEDS: PIPERACILLIN SODIUM/TAZOBACTAM 4.5 GM in NORMAL SALINE (BAXTER MINI) 100 ML IV SCH (20:21)
[2016-11-23] MEDS ORDERED: RT-ALBUTEROL/IPRATROPIUM 3 ML (DUONEB) VIAL INH PRN (22:00)
[2016-11-24] VITALS: BP 144/85
[2016-11-24] MEDS: RT-ALBUTEROL/IPRATROPIUM 3 ML (DUONEB) VIAL INH SCH ×6 (02:17→22:21)
[2016-11-24] MEDS: VANCOMYCIN 1500 MG/NS 500 ML IVPB IV SCH ×4 (03:03→16:01)
[2016-11-24 04:00] VITALS: BP 139/80
[2016-11-24] MEDS: PIPERACILLIN SODIUM/TAZOBACTAM 4.5 GM in NORMAL SALINE (BAXTER MINI) 100 ML IV SCH ×3 (04:29→19:57)
[2016-11-24 06:04] LABS: BASOPHILS % (AUTO) 0 % (0-10); EOSINOPHILS % (AUTO) 0 % (0-10); LYMPHOCYTES # (AUTO) 0.3 X 10^3 (1.0-4.0); LYMPHOCYTES % (AUTO) 4 % (12-44); MEAN CORPUSCULAR HEMOGLOBIN 32 PG (25-34); MEAN CORPUSCULAR HGB CONC 33 G/DL (32-36); MEAN CORPUSCULAR VOLUME 96 FL (80-99); MEAN PLATELET VOLUME 8.7 FL (7.4-10.4); MONOCYTES # (AUTO) 0.4 X 10^3 (0.0-1.0); MONOCYTES % (AUTO) 6 % (0-12); NEUTROPHILS # (AUTO) 6.4 X 10^3 (1.8-7.8); NEUTROPHILS % (AUTO) 90 % (42-75); PLATELET COUNT 210 10^3/uL (130-400); RED BLOOD COUNT 3.38 10^6/uL (4.35-5.85); RED CELL DISTRIBUTION WIDTH 14.4 % (10.0-14.5); WHITE BLOOD COUNT 7.2 10^3/uL (4.3-11.0)
[2016-11-24] MEDS: NS IV 1000 ML 1,000 ML IV SCH ×3 (06:46→19:57)
[2016-11-24] MEDS ORDERED: FLU TRIvalent (5 YOA+) 2016-17 (AFLURIA) 0.5 ML IM ONE (07:15)
[2016-11-24 08:00] VITALS: BP 108/90
[2016-11-24] MEDS: LEVOFLOXACIN 750 MG/D5W 150 ML PRE-MIX IV SCH (08:59)
[2016-11-24 12:00] VITALS: BP 157/95
--- NOTE | 2016-11-24 13:16 | History & Physical-Hospitalist ---
HPI History of Present Illness: HPI/Chief Complaint The patient is an 81-year-old white male who was admitted from the emergency room yesterday with a complaint of fever and difficulty swallowing. The patient has a history of esophageal cancer. He had extensive surgery in 2012 in an attempt to cure. This was ultimately unsuccessful and he has had recurrence. He does his treatment through the [facility]. He had increasing symptoms of esophageal obstruction and difficulty eating. On Saturday11/19/16 he had an attempt at endoscopic placement of an esophageal stent. This was not successful. He then returned home and he and his report continuing and indeed increasing difficulties in swallowing. They were given ensure to take. It was apparently too thick to pass in its usual constitution. He reports that liquids and semi-solids generally pass. He had an coughing spells following the Saturday encounter and was feared to have aspirated. His temperature was 102 at presentation to the emergency room. Chest x-ray confirmed the mediastinal mass. In addition there was an early infiltrate versus atelectasis in the right base. White count was relatively normal. Source: patient, family Exam Limitations: no limitations Date Seen 11/24/16 Attending Physician Moris Waters MD PCP No,Local Physician Referring Physician Date of Admission Nov 23, 2016 at 14:11 Home Medications & Allergies Home Medications Reviewed patient Home Medication Reconciliation Form Allergies Coded Allergies: No Known Drug Allergies (Unverified , 04/08/12) Past Njodvkm-Pjsszy-Lxaubo Hx Patient Social History Alcohol Use: Occasionally Uses Recreational Drug Use: No Smoking Status: Former Smoker Physical Abuse Screen: No Sexual Abuse: No Recent Foreign Travel: No Contact w/other who traveled: No Recent Hopitalizations: Yes Recent Infectious Disease Expo: No Immunizations Up To Date Date of Pneumonia Vaccine: Jul 19, 2014 Seasonal Allergies Seasonal Allergies: No Surgeries HX Surgeries: Yes (knee replacement 12 yrs ago, LAP HERNIA WITH MESH 04/07/2015 ) Surgeries: Abdominal Respiratory Hx Respiratory Disorders: No Cardiovascular Hx Cardiovascular Disorders: No Neurological Hx Neurological Disorders: No Reproductive System Hx Reproductive Disorders: No Genitourinary Hx Genitourinary Disorders: No Gastrointestinal Hx Gastrointestinal Disorders: Yes (ESOPHAGEAL CA, DX 2 YEARS AGO) Gastrointestinal Disorders: Gastroesophageal Reflux, Polyps Musculoskeletal Hx Musculoskeletal Disorders: Yes (ATHRITIS IN HANDS) Musculoskeletal Disorders: Arthritis Endocrine Hx Endocrine Disorders: No HEENT HX ENT Disorders: No HEENT Disorders: Cataract Loss of Vision: Denies Hearing Impairment: Hard of Hearing Cancer Hx Cancer: Yes Cancer: Esophageal Psychosocial Hx Psychiatric Problems: No Blood Transfusions Hx Blood Disorders: No Adverse Reaction to a Blood Tr: No Review of Systems Constitutional: see HPI EENTM: hoarseness (this has been present for some time) Respiratory: cough dyspnea on exertion Cardiovascular: no symptoms reported Gastrointestinal: dysphagia other (the patient has had minimum stomach capacity since his operation in 2012) Genitourinary: no symptoms reported Musculoskeletal: muscle weakness Skin: no symptoms reported Psychiatric/Neurological: No Symptoms Reported Physical Exam Physical Exam Vital Signs Capillary Refill : Less Than 3 Seconds General Appearance: Other (patient is a slender white male with a rather considerable cough and significant hoarseness) Eyes: Bilateral Eye Normal Inspection HEENT: Pharynx Normal Neck: Full Range of Motion Normal Inspection Non Tender Supple Carotid Bruit Respiratory: Decreased Breath Sounds Cardiovascular: Regular Rate, Rhythm No Edema No Gallop No JVD No Murmur Normal Peripheral Pulses Back: Normal Inspection Extremity: Normal Capillary Refill Normal Inspection Normal Range of Motion Non Tender No Calf Tenderness No Pedal Edema Neurologic/Psychiatric: Alert Oriented x3 No Motor/Sensory Deficits Normal Mood/Affect Skin: Normal Color Warm/Dry Lymphatic: No Adenopathy Results Results/Procedures Lab Assessment/Plan Admission Diagnosis 1.aspiration pneumonia. 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 Clinical Quality Measures DVT/VTE Risk/Contraindication: Risk Factor Score Per Nursin RFS Level Per Nursing on Admit: 4+=Very High MORIS WATERS MD Nov 24, 2016 13:16 Skin: Normal Color Warm/Dry Lymphatic: No Adenopathy Results Results/Procedures Lab Laboratory Tests 11/23/16 12:30 11/24/16 05:55 Assessment/Plan Admission Diagnosis 1.aspiration pneumonia. 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 Clinical Quality Measures DVT/VTE Risk/Contraindication: Risk Factor Score Per Nursin RFS Level Per Nursing on Admit: 4+=Very High MORIS WATERS MD Nov 24, 2016 13:16
[2016-11-24] MEDS ORDERED: ACETAMINOPHEN 500 MG TAB (TYLENOL) PO PRN (13:30)
[2016-11-24] MEDS ORDERED: TROUGH ORDER-PHARMACY XX NR (14:00)
[2016-11-24 16:00] VITALS: BP 151/78
[2016-11-24 20:00] VITALS: BP 149/87
[2016-11-25] VITALS: BP 146/74
[2016-11-25] MEDS ORDERED: TROUGH ORDER-PHARMACY XX NR (02:00)
[2016-11-25] MEDS: RT-ALBUTEROL/IPRATROPIUM 3 ML (DUONEB) VIAL INH SCH ×6 (02:22→22:35)
[2016-11-25] MEDS: VANCOMYCIN 1500 MG/NS 500 ML IVPB IV SCH ×4 (03:08→15:27)
[2016-11-25] MEDS: NS IV 1000 ML 1,000 ML IV SCH ×3 (05:19→20:56)
[2016-11-25] MEDS: PIPERACILLIN SODIUM/TAZOBACTAM 4.5 GM in NORMAL SALINE (BAXTER MINI) 100 ML IV SCH ×3 (05:19→20:56)
[2016-11-25 08:00] VITALS: BP 141/75
[2016-11-25] MEDS: LEVOFLOXACIN 750 MG/D5W 150 ML PRE-MIX IV SCH (09:40)
--- NOTE | 2016-11-25 13:03 | Progress Note-Hospitalist ---
Standard Progress Note Progress Notes/Assess & Plan Date Seen 11/25/16 Diagnosis 1.aspiration pneumonia. 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 Assess & Plan/Chief Complaint The patient reports that he is even having difficulty swallowing water today. During the visit he repeatedly coughed and sputtered and produced a variety of material which appeared to be mucoid and may be GELATINIZED saliva. I have spoken to Dr. Dutton and he will see the patient later this afternoon to explain the procedure for a mini lap feeding tube. We will need to contact his [place] hospital plan in [place] for authorization first thing in the morning. Physical exam: He is alert and pleasant. A yvonne discussion of coming events and ultimate as a consequence of his malignancy was held. They are both most interested in quality of life at this time. Lungs show distant breath sounds. CV is regular without murmur. Abdomen is scaphoid and soft. Impression: Recurrent esophageal carcinoma. 2.esophageal obstruction secondary to number 1. Plan: Consult Dr. Dutton and proceed with the hopes that he may have this procedure performed tomorrow. Labs Laboratory Tests 11/24/16 05:55 ENRIKE WATERS MD Nov 25, 2016 13:02
[2016-11-25 16:00] VITALS: BP 147/83
[2016-11-25] MEDS ORDERED: HYDROcodone/APAP 7.5 MG/325 MG (LORTAB, LORCET PLUS) TABLET PO PRN (18:45)
[2016-11-25] MEDS ORDERED: LORazepam INJ 2 MG/ML (ATIVAN) VIAL IVP PRN (18:45)
--- NOTE | 2016-11-25 18:52 | Progress Note-Pre Operative ---
Pre-Operative Progress Note H&P Reviewed The H&P was reviewed, patient examined and no changes noted. Date H&P Reviewed: Nov 25, 2016 Time H&P Reviewed: 18:51 Pre-Operative Diagnosis: advanced esophageal cancer with esophageal obstruction. LATASHA CADET MD Nov 25, 2016 18:52
[2016-11-25] MEDS: PANTOPRAZOLE 40 MG/10 ML (PROTONIX) VIAL IV SCH (20:56)
[2016-11-26] VITALS: BP 157/91
[2016-11-26] MEDS: VANCOMYCIN 1500 MG/NS 500 ML IVPB IV SCH ×2 (02:31)
[2016-11-26] MEDS: RT-ALBUTEROL/IPRATROPIUM 3 ML (DUONEB) VIAL INH SCH ×7 (02:41→22:14)
[2016-11-26] MEDS: PIPERACILLIN SODIUM/TAZOBACTAM 4.5 GM in NORMAL SALINE (BAXTER MINI) 100 ML IV SCH ×3 (04:41→20:16)
[2016-11-26 08:00] VITALS: BP 150/88
--- NOTE | 2016-11-26 08:34 | CONSULTATION REPORT ---
DATE OF CONSULTATION: 11/25/2016 REFERRING PHYSICIAN: ATTENDING PRIMARY CARE PHYSICIAN: Dr. Milagro Palmer. ADMITTING PHYSICIAN: Dr. Moris Miller ATTENDING PHYSICIAN AT [facility] IN [place]: Dr. Светлана Hudson. Mr. Juan Welch is an 81-year-old male who has had a long-standing history of gastroesophageal reflux disease. He was having worsening symptoms and underwent an EGD and was found to have a mass which was biopsied and consistent with esophageal cancer. He was seen at [facility] and did undergo a transhiatal esophagectomy in 2012. Before this, he underwent neoadjuvant chemotherapy and radiation. He states that he did well for the next few years; however, had recurrent symptoms and was worked up and found to have recurrence April 2016. He underwent another round of chemotherapy; however, the tumors had progressed despite the chemotherapy. He reports that his dysphagia has worsened and it was initially mild; however, now has progressed to liquids and does have regurgitation of what appears to be liquids and saliva. Chest x-ray was also performed, which did show a possibility of an aspiration and is currently on antibiotics. He was eventually referred back to [facility] and underwent an attempt to proceed with an esophageal dilatation a palliative stent placement on 11/19/2016; however, this was unsuccessful due to tight stricture. Again, he states that his dysphagia has worsened. The risks and benefits of gastrostomy tube were explained to the patient and the patient and his are in complete understanding and would like to proceed with placement of one either laparoscopic or open technique to allow for proper alimentation and hydration as well as medication. PAST MEDICAL HISTORY: Gastroesophageal reflux disease. Degenerative joint disease. PAST SURGERIES: 1. Transhiatal esophagectomy 2012. 2. Laparoscopic incisional hernia repair with mesh 2014. 3. Right total knee arthroplasty 1999. 4. Bilateral inguinal hernia repair. ALLERGIES: No known drug allergies. MEDICATIONS: None. SOCIAL HISTORY: Negative smoke. Negative alcohol. FAMILY HISTORY: Father teratoma. VITAL SIGNS: Temperature 98.4, blood pressure 147/83, pulse 100, respirations 20, pulse oximetry 96% on 2 liters nasal cannula. REVIEW OF SYSTEMS: This is a well-nourished male, currently in no acute distress. He is not experiencing shortness of breath or difficulty breathing. No chest pain, palpitations, diaphoresis. Significant dysphagia and he is only able to take in small amounts of liquids; however, this will be followed by coughing of a thick sputum. No hematochezia. No coffee-ground emesis. No fever or chills with some weight loss in the past few weeks. PHYSICAL EXAMINATION: CHEST: Few scattered rales bilaterally. HEART: Regular. EXTREMITIES: No lower extremity edema. Negative Kaylie sign. HEENT: No scleral icterus, no cervical lymphadenopathy. ABDOMEN: Soft, nontender, nondistended. LABS: WBC 7.2, hemoglobin 10.7, hematocrit 32, platelets 210, albumin 3.5. 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 The risks and benefits of gastrostomy tube were explained to the patient and due to his current condition, would like to proceed with gastrostomy tube to continue with alimentary hydration, nutrition, as well as medications. He had a previous transhiatal esophagectomy as well as multiple other surgeries. We will proceed with a diagnostic laparoscopy and hopeful laparoscopic gastrostomy tube placement versus an open gastrostomy tube placement. Job ID: [id number] Dictated Date: 11/25/2016 18:43:37 Grinding Mill Operator Date: 11/26/2016 08:25:32/mariluz
[2016-11-26] MEDS: LEVOFLOXACIN 750 MG/D5W 150 ML PRE-MIX IV SCH (08:48)
[2016-11-26] MEDS: NS IV 1000 ML 1,000 ML IV SCH ×3 (08:48→23:15)
[2016-11-26] MEDS: PANTOPRAZOLE 40 MG/10 ML (PROTONIX) VIAL IV SCH ×2 (08:48→20:27)
[2016-11-26] MEDS ORDERED: BUP/EPI 0.5% 1:200,000 (SENSORCAINE) 30 ML VIAL ONE (09:23)
[2016-11-26] MEDS ORDERED: MIDAZOLAM 2 MG/2 ML (VERSED) VIAL ONE (09:59)
[2016-11-26] MEDS ORDERED: fentaNYL INJECTION 250 MCG/5 ML AMP ONE (09:59)
[2016-11-26] MEDS: LACTATED RINGERS 1,000 ML IV PRN ×2 (10:05→11:34)
[2016-11-26] MEDS ORDERED: ROCURONIUM 50 MG/5 ML (ZEMURON) VIAL IV ONE (10:06)
[2016-11-26] MEDS ORDERED: proPOfol 200 MG/20 ML (DIPRIVAN) VIAL IV ONE (10:06)
[2016-11-26] MEDS ORDERED: ONDANSETRON 4 MG/2 ML (SDV) Z0FRAN ONE (10:06)
[2016-11-26] MEDS ORDERED: LIDOCAINE PF 2% 10 ML (XYLOCAINE) AMP ONE (10:06)
[2016-11-26] MEDS ORDERED: LACTATED RINGERS 1,000 ML IV ONE ×2 (10:06→13:16)
[2016-11-26] MEDS ORDERED: DEXAMETHASONE PF 10 MG/ML (DECADRON) VIAL ONE (10:06)
[2016-11-26] MEDS ORDERED: NS (IVPB) 100 ML ONE (10:11)
[2016-11-26] MEDS ORDERED: ceFAZolin 1,000 MG (ANCEF) VIAL ONE (10:11)
--- NOTE | 2016-11-26 10:17 | Progress Note-Hospitalist ---
Progress Note HPI/CC on Admission The patient is an 81-year-old white male who was admitted from the emergency room yesterday with a complaint of fever and difficulty swallowing. The patient has a history of esophageal cancer. He had extensive surgery in 2012 in an attempt to cure. This was ultimately unsuccessful and he has had recurrence. He does his treatment through the [facility]. He had increasing symptoms of esophageal obstruction and difficulty eating. On Saturday11/19/16 he had an attempt at endoscopic placement of an esophageal stent. This was not successful. He then returned home and he and his report continuing and indeed increasing difficulties in swallowing. They were given ensure to take. It was up apparently to thick to pass in its usual constitution. He reports that liquids and semi-solids generally pass. He had an coughing spells following the Saturday encounter and was feared to have aspirated. His temperature was 102 at presentation to the emergency room. Chest x-ray confirmed the mediastinal mass. In addition there was an early infiltrate versus atelectasis in the right base. White count was relatively normal. He Progress Notes/Assess & Plan Date Seen 11/26/16 Diagonsis/Assessment & Plan Patient Interview: Dr. Steward informs pt that SW is in contact with Dr. Hudson at the [facility] in [place]. Physical exam was stable in order to undergo surgery since benefits outweigh medical risks. Pt denies having any significant pain currently. Pt states that he has a significant cough. 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 Plan: Feeding tube and exploratory today. ADIS will contact [facility]'s Dr. Hduson for approval at [facility] Minimize abx tomorrow Nebs O2 Poor prognosis palliative care consultation Scribed by Brian Elizondo under the direct supervision of Dr. Steward. ALBERT STEWARD DO Nov 26, 2016 10:17
[2016-11-26] MEDS ORDERED: morphine INJ 10 MG/ML 1ML (SYR OR VIAL) ONE (11:04)
[2016-11-26] MEDS ORDERED: ESMOLOL 100 MG/10 ML (BREVIBLOC) VIAL ONE (11:34)
[2016-11-26] MEDS ORDERED: GLYCOPYRROLATE 0.2 MG/ML (ROBINUL) 2 ML VIAL ONE (13:16)
[2016-11-26] MEDS ORDERED: NEOSTIGMINE (BLOXIVERZ ) 1 MG/1ML 10 ML VIAL ONE (13:16)
[2016-11-26] MEDS ORDERED: meTOprolol 5 MG/5 ML (LOPRESSOR) VIAL ONE (13:16)
[2016-11-26] MEDS ORDERED: SEVOFLURANE (ULTANE) 15 ML INHAL SOLN ONE (13:29)
--- NOTE | 2016-11-26 13:38 | Progress Note-Post Operative ---
Post-Operative Progess Note Pre-Operative Diagnosis advanced esophageal cancer with esophageal obstruction. Post-Operative Diagnosis same Post-Op Procedure Note Date of Procedure: Nov 26, 2016 Name of Procedure: diagnostic laparoscopy, lysis of adhesions(90 minutes), laparoscopic gastrostomy tube placement. Anesthesia Type GET Estimated blood loss (mL): LATASHA Vieyra MD Nov 26, 2016 1:38 pm
[2016-11-26] MEDS ORDERED: TROUGH ORDER-PHARMACY XX NR (14:00)
[2016-11-26] MEDS ORDERED: ONDANSETRON 4 MG/2 ML (SDV) Z0FRAN IVP PRN (14:00)
[2016-11-26] MEDS ORDERED: morphine INJ 10 MG/ML 1ML (SYR OR VIAL) IVP PRN (14:00)
[2016-11-26] MEDS ORDERED: MEPERIDINE (DEMEROL) INJ 50 MG/ML IVP PRN (14:00)
[2016-11-26] MEDS: ONDANSETRON 4 MG/2 ML (SDV) Z0FRAN IVP PRN (15:07)
[2016-11-26 16:35] VITALS: BP 166/96
[2016-11-26] MEDS: fentaNYL INJECTION 100 MCG/2 ML AMP IVP PRN ×2 (16:58→20:34)
[2016-11-26] MEDS ORDERED: ceFAZolin INJECTION 1,000 MG in NORMAL SALINE (BAXTER MINI) 50 ML IV ONE (18:45)
[2016-11-27] VITALS: BP 148/83
[2016-11-27] MEDS: fentaNYL INJECTION 100 MCG/2 ML AMP IVP PRN ×2 (00:28→08:39)
[2016-11-27] MEDS: NS IV 1000 ML 1,000 ML IV SCH (00:54)
[2016-11-27] MEDS: RT-ALBUTEROL/IPRATROPIUM 3 ML (DUONEB) VIAL INH SCH ×6 (03:30→22:31)
[2016-11-27] MEDS: PIPERACILLIN SODIUM/TAZOBACTAM 4.5 GM in NORMAL SALINE (BAXTER MINI) 100 ML IV SCH ×3 (04:03→20:02)
[2016-11-27 08:00] VITALS: BP 166/89
[2016-11-27] MEDS: LEVOFLOXACIN 750 MG/D5W 150 ML PRE-MIX IV SCH (08:39)
[2016-11-27] MEDS: PANTOPRAZOLE 40 MG/10 ML (PROTONIX) VIAL IV SCH ×2 (08:39→20:02)
--- NOTE | 2016-11-27 09:53 | Diagnostic Imaging Report ---
Indication: Dyspnea, pneumonia Discussion: Two views of the chest were obtained, comparison 11/23/2016. Pneumoperitoneum is noted under both hemidiaphragms, new and of uncertain etiology. Recommend clinical correlation and dedicated imaging as indicated. Discoid atelectasis is noted within the bilateral lung bases. No focal consolidation or pleural fluid. No pneumothorax. Left chest wall [id number] is stable. Stable normal heart size. Impression: Interval development of pneumoperitoneum of uncertain etiology. CRITICAL FINDINGS Report was called and faxed to patient's nurse Sofie @ [facility], [place] @ 9:50 AM/martha. Dictated by: Dictated on workstation # [id number]
--- NOTE | 2016-11-27 09:56 | Progress Note-Hospitalist ---
Progress Note HPI/CC on Admission The patient is an 81-year-old white male who was admitted from the emergency room yesterday with a complaint of fever and difficulty swallowing. The patient has a history of esophageal cancer. He had extensive surgery in 2012 in an attempt to cure. This was ultimately unsuccessful and he has had recurrence. He does his treatment through the [facility]. He had increasing symptoms of esophageal obstruction and difficulty eating. On Saturday11/19/16 he had an attempt at endoscopic placement of an esophageal stent. This was not successful. He then returned home and he and his report continuing and indeed increasing difficulties in swallowing. They were given ensure to take. It was up apparently to thick to pass in its usual constitution. He reports that liquids and semi-solids generally pass. He had an coughing spells following the Saturday encounter and was feared to have aspirated. His temperature was 102 at presentation to the emergency room. Chest x-ray confirmed the mediastinal mass. In addition there was an early infiltrate versus atelectasis in the right base. White count was relatively normal. 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 Pt has 50 mcg of Fentanyl. BP 166/89, elevated yesterday. Pt does not take BP meds. RN requested a palliative care consult. Pt is able to use feeding tube starting today. Pt was visited today by and son. Patient Interview: Pt states that his surgery went well yesterday. Pt states that his pain is a 5, but rises to 10 when he coughs. Pt states that Dr. Polanco is his Oncologist. Dr. Keyes informs pt that he will have a repeat CXR today. Physical exam was stable. Pt states that he is receiving breathing treatments. Pt denies using home O2 normally. Dr. Keyes discusses DC plans with pt, informing pt that he will likely need to stay at least until tomorrow. Pt states his last BM was two days ago, but he has not been eating. Pt states that home health would come through [facility] in [place] if needed. no fever vital signs stable, pleasant, up in chair, family at the bedside, improved overall Regular rate and rhythm, decreased breath sounds in the bases and wheezing is noted but improved from yesterday good air expansion Mild tenderness in abdomen from PEG tube placement No edema and normal depression Laboratory Tests 11/27/16 10:00 Assessment: Large esophageal obstruction due to cancer requiring PEG tube placement with adhesions removal by Dr. Dutton POD # 1 Aspiration pneumonia showing improvement on chest x-ray Hypernatremia due to dehydration due to poor oral intake since nothing by mouth Acute renal failure creatinine 1.87 due to dehydration placed on IV fluids by Dr. Dutton Hypoxia evaluating patient for home O2 Anemia of cancer Plan: Repeat CXR Check labs SW consult for home health post-DC via [facility] in [place] Dietary consult Needs bolus feeds with free H2O DC tomorrow Scribed by Brian Elizondo under the direct supervision of Dr. Keyes. ALBERT KEYES DO Nov 27, 2016 09:56 palliative care consultation Scribed by Brian Elizondo under the direct supervision of Dr. Keyes. ALBERT KEYES DO Nov 27, 2016 09:56
[2016-11-27 10:12] LABS: BASOPHILS % (AUTO) 0 % (0-10); EOSINOPHILS % (AUTO) 0 % (0-10); LYMPHOCYTES # (AUTO) 0.3 X 10^3 (1.0-4.0); LYMPHOCYTES % (AUTO) 4 % (12-44); MEAN CORPUSCULAR HEMOGLOBIN 31 PG (25-34); MEAN CORPUSCULAR HGB CONC 32 G/DL (32-36); MEAN CORPUSCULAR VOLUME 97 FL (80-99); MEAN PLATELET VOLUME 8.6 FL (7.4-10.4); MONOCYTES # (AUTO) 0.6 X 10^3 (0.0-1.0); MONOCYTES % (AUTO) 8 % (0-12); NEUTROPHILS # (AUTO) 6.7 X 10^3 (1.8-7.8); NEUTROPHILS % (AUTO) 88 % (42-75); PLATELET COUNT 215 10^3/uL (130-400); RED BLOOD COUNT 3.13 10^6/uL (4.35-5.85); RED CELL DISTRIBUTION WIDTH 14.7 % (10.0-14.5); WHITE BLOOD COUNT 7.7 10^3/uL (4.3-11.0)
--- NOTE | 2016-11-27 10:23 | OPERATIVE REPORT ---
PROCEDURE PHYSICIAN: LATASHA DUTTON DATE OF ADMISSION: 11/23/2016 DATE OF PROCEDURE: 11/26/2016 ATTENDING PRIMARY CARE PHYSICIAN: Dr. Milagro Palmer. ADMITTING PHYSICIAN: Dr. Miller ATTENDING PHYSICIAN AT [facility]: Dr. Светлана Hudson. PREOPERATIVE DIAGNOSIS: Recurrent obstructive esophageal cancer. POSTOPERATIVE DIAGNOSIS: Recurrent obstructive esophageal cancer. PROCEDURE: 1. Diagnostic laparoscopy. 2. Laparoscopic lysis of adhesions, which took approximately 90 minutes. 3. Laparoscopic gastrostomy tube placement in the gastric remnant. SURGEON: Dr. Dutton. ANESTHESIA: General endotracheal. ESTIMATED BLOOD LOSS: Minimal. FINDINGS: Dense adhesion tissue, previous mesh placement for hernia. Previous transhiatal esophagectomy was reanastomosed retrocolic. Small gastric remnant. DISPOSITION: The patient tolerated the procedure well. BRIEF HISTORY: Mr. Juan Welch is an 81-year-old male with a long-standing history of gastroesophageal reflux disease. He had worsening symptoms and underwent an EGD and was found to have a mass which was biopsied and consistent with the esophageal cancer. He was seen at [facility] and did undergo transhiatal esophagectomy and anastomosis in the left neck in 2012. Before this, he underwent neoadjuvant chemotherapy and radiation. He states that he did well for the next few years. However, have recurrent symptoms and was worked up and found to have recurrent tumor 2016. He underwent another round of chemotherapy; however, the tumor had progressed despite chemotherapy. He reports that his dysphagia has worsened which was initially mild, however, has progressed and now is barely able to take in any liquids. He does have a frequent regurgitation as well. Chest x-ray was performed which did show the possibility of aspiration and is currently on antibiotics. Eventually referred back to [facility] and underwent attempted procedure with an esophageal dilatation and palliative stent placement on 11/19/2016, however, this was unsuccessful due to the tight stricture and the size of the tumor. Again, he states that he dysphagia has worsened. The risks and benefits of gastrostomy tube were explained to the patient, especially due to the previous surgeries. They are in clear understanding of the risks and benefits, as well as the end point being palliation, and would like to proceed with placement of a laparoscopic gastrostomy tube for proper alimentation, hydration as well as medications. PROCEDURE: The patient was brought to the operating room, laid supine on the table. After adequate IV pain and sedative medications and general endotracheal intubation, the abdomen was prepped and draped in the standard surgical fashion. 0.5% Marcaine with epinephrine was used to anesthetize the overlying skin in the right upper abdominal quadrant. A small transverse skin incision made using a 15 blade. An 0 silk suture was applied to the medial aspect of the incision for retraction. A Veress needle inserted with a low opening pressure of 0 mmHg and the abdomen was then insufflated to 15 mmHg pressure. The Veress needle removed and a 5 mm Xcel trocar placed followed by a 5 mm, 45 degrees angle laparoscope, visualizing the peritoneal cavity. A four-quadrant abdominal exploration was performed. There was extensive adhesions due to his previous transhiatal esophagectomy as well as hernia repair. We then proceeded to place a 10 mm infraumbilical port after the skin and peritoneum were anesthetized using 0.5% Marcaine with epinephrine and a transverse skin incision made using a 15 blade. Some omental adhesions towards the left upper abdominal quadrant were then taken down bluntly and a 5 mm port was placed. Another 5 mm port was placed in the right lower abdominal quadrant under direct visualization. The patient was then placed in reverse Trendelenburg position. The previous feeding tube was identified and appeared to be jejunostomy tube, which was left intact. The omental adhesions were then taken down using Sonicision. We then proceeded with dissection superiorly. The transverse colon was adhered to the anterior abdominal wall. It appeared that previous surgery encompassed a retrocolic route of anastomosis. The stomach remnant was then dissected out identifying the right gastroepiploic artery and the omentum, associated with it. The pylorus of the stomach was then visualized and completely dissected out. The entire dissection of the adhesion took approximately 90 minutes. An area along the anterior portion of the pylorus was then cleared off using the Sonicision as well as blunt dissection. A pursestring 0 Vicryl suture was placed taking full submucosal bites. The gastrostomy then made using an Endo Shear. An area in the epigastric region was then anesthetized using 0.5% Marcaine with epinephrine and a vertical skin incision made using a 15 blade. A tract was then created through the abdominal layers using the trocar to a 10 mm port. Through this opening, a MEHUL 22 Swazi gastrostomy tube with an inflatable balloon on the end was placed through this. The gastrostomy tube was then placed into the gastrostomy site, and the balloon insufflated to 7 mL of saline and the previously placed 0 Vicryl suture was then tied. Good hemostasis was observed. The 10 mm port site, fascia and peritoneum were then closed under direct visualization using a Jorge Alberto-Leandra device and 0 Vicryl suture. The abdomen was then desufflated. The gastrostomy tube anterior rubber bolster was then firmly abutted towards skin. The remaining ports removed and all skin incisions were closed using 4-0 Monocryl running subcuticular sutures. Wounds were then cleaned and covered Dermabond. The patient tolerated the procedure well. The gastrostomy tube may be accessed and used starting tomorrow. We will also proceed with continued IV antibiotics for suspected aspiration pneumonia, as well as potentially start tube feeds. Job ID: [id number] Dictated Date: 11/26/2016 13:58:00 Yard Worker Date: 11/27/2016 10:02:05 / cornel SNELL
[2016-11-27 10:28] LABS: BILIRUBIN,TOTAL 0.5 MG/DL (0.1-1.0); CALCIUM 8.6 MG/DL (8.5-10.1); CREATININE SERUM 1.87 MG/DL (0.60-1.30); POTASSIUM 3.4 MMOL/L (3.6-5.0)
[2016-11-27] MEDS ORDERED: oxyCODONE 5 MG/5 ML ORAL SOLN (roxiCODONE) 5 ML UDC PO PRN (10:45)
[2016-11-27] MEDS ORDERED: 1/2 NS W/KCL 20 MEQ/L 1,000 ML IV SCH (10:45)
--- NOTE | 2016-11-27 10:46 | Progress Note (SOAP) ---
Subjective Subjective/Events-last exam doing ok. dysphagia/cough slightly improved today. pain mostly controlled. no fever/chills. Objective Exam Vital Signs Date Time Temp Pulse Resp B/P Pulse Ox O2 Delivery O2 Flow Rate FiO2 11/27/16 08:00 97.7 117 20 166/89 90 Room Air 11/27/16 07:21 95 Nasal Cannula 4.00 11/27/16 03:31 96 Nasal Cannula 4.00 11/27/16 00:00 96.8 114 20 148/83 96 Nasal Cannula 2.00 11/26/16 22:14 92 Nasal Cannula 4.00 11/26/16 20:00 Nasal Cannula 2.00 11/26/16 19:50 92 Nasal Cannula 4.00 11/26/16 16:35 97.8 95 18 166/96 97 Nasal Cannula 2.00 I & O 11/27/16 07:00 Intake Total 2900 ml Output Total 1050 ml Balance 1850 ml Capillary Refill : Less Than 3 Seconds General Appearance: No Apparent Distress HEENT: PERRL/EOMI Neck: Full Range of Motion Respiratory: Chest Non Tender Normal Breath Sounds Cardiovascular: Regular Rate, Rhythm Gastrointestinal: normal bowel sounds Extremity: Normal Capillary Refill Neurologic/Psychiatric: Alert Oriented x3 Skin: Normal Color Lymphatic: No Adenopathy Results Lab Laboratory Tests 11/26/16 14:42: Vancomycin Level Trough 31.7*H 11/27/16 10:00: Alanine Aminotransferase (ALT/SGPT) 10, Albumin 3.0L, Alkaline Phosphatase 44, Anion Gap 9, Aspartate Amino Transf (AST/SGOT) 20, BUN/Creatinine Ratio 14, Basophils # (Auto) 0.0, Basophils (%) (Auto) 0, Blood Urea Nitrogen 26H, Calcium Level 8.6, Carbon Dioxide Level 25, Chloride Level 115H, Creatinine 1.87H, Eosinophils # (Auto) 0.0, Eosinophils (%) (Auto) 0, Estimat Glomerular Filtration Rate 35, Glucose Level 137H, Hematocrit 31L, Hemoglobin 9.7L, Lymphocytes # (Auto) 0.3L, Lymphocytes (%) (Auto) 4L, Mean Corpuscular Hemoglobin 31, Mean Corpuscular Hemoglobin Concent 32, Mean Corpuscular Volume 97, Mean Platelet Volume 8.6, Monocytes # (Auto) 0.6, Monocytes (%) (Auto) 8, Neutrophils # (Auto) 6.7, Neutrophils (%) (Auto) 88H, Platelet Count 215, Potassium Level 3.4L, Red Blood Count 3.13L, Red Cell Distribution Width 14.7H, Sodium Level 149H, Total Bilirubin 0.5, Total Protein 6.0L, White Blood Count 7.7 Microbiology 11/23/16 Blood Culture - Preliminary, Resulted Staph, Coag Neg (Finance Business Partner) 11/26/16 MRSA Screen - Final, Complete MRSA not isolated Assessment/Plan Assessment/Plan Assess & Plan/Chief Complaint recurrent near obstructing esophageal cancer s/p laparoscopic gastrostomy tube placement. ok to use g-tube. ambulate. increase IV for azotemia. palliative care consult. Diagnosis/Problems: Clinical Quality Measures DVT/VTE Risk/Contraindication: Risk Factor Score Per Nursin RFS Level Per Nursing on Admit: 4+=Very High LATASHA CADET MD Nov 27, 2016 10:46
[2016-11-27] MEDS: POTASSIUM CHLORIDE INJ 40 MEQ in 1/2 NS IV SOLUTION 1,000 ML IV SCH ×2 (11:31→18:32)
--- NOTE | 2016-11-27 11:58 | Anesthesia-General Post-Op ---
General Patient Condition Mental Status/LOC: Same as Preop Cardiovascular: Satisfactory Nausea/Vomiting: Absent Respiratory: Satisfactory Pain: Controlled Complications: Absent Post Op Complications Complications None Follow Up Care/Instructions Patient Instructions None needed. Anesthesia/Patient Condition Patient Condition Patient is doing well, no complaints, stable vital signs, no apparent adverse anesthesia problems. No complications reported per nursing. LASHELL OLSON CRNA Nov 27, 2016 11:58
[2016-11-27] MEDS ORDERED: TROUGH ORDER-PHARMACY XX NR (14:00)
[2016-11-27 16:00] VITALS: BP 133/77
[2016-11-28] MEDS: POTASSIUM CHLORIDE INJ 40 MEQ in 1/2 NS IV SOLUTION 1,000 ML IV SCH ×4 (01:51→23:26)
[2016-11-28] MEDS: RT-ALBUTEROL/IPRATROPIUM 3 ML (DUONEB) VIAL INH SCH ×6 (02:27→22:07)
[2016-11-28] MEDS: PIPERACILLIN SODIUM/TAZOBACTAM 4.5 GM in NORMAL SALINE (BAXTER MINI) 100 ML IV SCH ×3 (03:29→20:41)
[2016-11-28] MEDS: fentaNYL INJECTION 100 MCG/2 ML AMP IVP PRN ×3 (03:53→23:26)
[2016-11-28 05:37] LABS: BASOPHILS % (AUTO) 0 % (0-10); EOSINOPHILS # (AUTO) 0.1 10^3/uL (0.0-0.3); EOSINOPHILS % (AUTO) 1 % (0-10); LYMPHOCYTES # (AUTO) 0.4 X 10^3 (1.0-4.0); LYMPHOCYTES % (AUTO) 5 % (12-44); MEAN CORPUSCULAR HEMOGLOBIN 31 PG (25-34); MEAN CORPUSCULAR HGB CONC 32 G/DL (32-36); MEAN CORPUSCULAR VOLUME 98 FL (80-99); MEAN PLATELET VOLUME 8.5 FL (7.4-10.4); MONOCYTES # (AUTO) 0.5 X 10^3 (0.0-1.0); MONOCYTES % (AUTO) 6 % (0-12); NEUTROPHILS # (AUTO) 6.9 X 10^3 (1.8-7.8); NEUTROPHILS % (AUTO) 88 % (42-75); PLATELET COUNT 206 10^3/uL (130-400); RED BLOOD COUNT 3.32 10^6/uL (4.35-5.85); RED CELL DISTRIBUTION WIDTH 14.8 % (10.0-14.5); WHITE BLOOD COUNT 7.8 10^3/uL (4.3-11.0)
[2016-11-28 05:55] LABS: ALBUMIN 2.9 G/DL (3.2-4.5); BILIRUBIN,TOTAL 0.6 MG/DL (0.1-1.0); CALCIUM 8.3 MG/DL (8.5-10.1); CREATININE SERUM 1.82 MG/DL (0.60-1.30); TOTAL PROTEIN 5.8 G/DL (6.4-8.2)
[2016-11-28 08:00] VITALS: BP 169/97
[2016-11-28] MEDS: PANTOPRAZOLE 40 MG/10 ML (PROTONIX) VIAL IV SCH ×2 (08:57→20:41)
[2016-11-28] MEDS: LEVOFLOXACIN 750 MG/D5W 150 ML PRE-MIX IV SCH (08:58)
[2016-11-28] MEDS: ONDANSETRON 4 MG/2 ML (SDV) Z0FRAN IVP PRN ×2 (10:27→18:45)
[2016-11-28] MEDS ORDERED: SCOPOLAMINE 1.5 MG (TRANSDERM-SCOP) PATCH TOP SCH (11:00)
--- NOTE | 2016-11-28 11:23 | Progress Note (SOAP) ---
Subjective Subjective/Events-last exam doing ok. still has persistent regurgitation and cough. tolerating TF's(about 120ml QID) Objective Exam Vital Signs Date Time Temp Pulse Resp B/P Pulse Ox O2 Delivery O2 Flow Rate FiO2 11/28/16 11:11 94 Nasal Cannula 2.00 11/28/16 08:45 95 Nasal Cannula 2.00 11/28/16 08:00 97.8 108 18 169/97 95 Nasal Cannula 2.00 11/28/16 07:37 93 Nasal Cannula 2.00 11/28/16 02:28 94 Nasal Cannula 2.00 11/28/16 02:04 93 11/27/16 22:31 96 Nasal Cannula 2.00 11/27/16 20:15 Nasal Cannula 2.00 11/27/16 19:25 94 Nasal Cannula 2.00 11/27/16 16:00 98.3 120 16 133/77 96 Room Air 11/27/16 15:35 85 Room Air 11/27/16 11:35 95 Nasal Cannula 2.00 I & O 11/28/16 07:00 Intake Total 1130 ml Output Total 1250 ml Balance -120 ml Capillary Refill : Less Than 3 Seconds General Appearance: No Apparent Distress HEENT: PERRL/EOMI Neck: Full Range of Motion Respiratory: Chest Non Tender Rales Rhonci Cardiovascular: Regular Rate, Rhythm Gastrointestinal: normal bowel sounds soft Extremity: Normal Capillary Refill Neurologic/Psychiatric: Alert Oriented x3 Skin: Normal Color Lymphatic: No Adenopathy Results Lab Laboratory Tests 11/28/16 05:30: Alanine Aminotransferase (ALT/SGPT) 11, Albumin 2.9L, Alkaline Phosphatase 39L, Anion Gap 9, Aspartate Amino Transf (AST/SGOT) 18, BUN/Creatinine Ratio 14, Basophils # (Auto) 0.0, Basophils (%) (Auto) 0, Blood Urea Nitrogen 25H, Calcium Level 8.3L, Carbon Dioxide Level 23, Chloride Level 116H, Creatinine 1.82H, Eosinophils # (Auto) 0.1, Eosinophils (%) (Auto) 1, Estimat Glomerular Filtration Rate 36, Glucose Level 111H, Hematocrit 32L, Hemoglobin 10.2L, Lymphocytes # (Auto) 0.4L, Lymphocytes (%) (Auto) 5L, Mean Corpuscular Hemoglobin 31, Mean Corpuscular Hemoglobin Concent 32, Mean Corpuscular Volume 98, Mean Platelet Volume 8.5, Monocytes # (Auto) 0.5, Monocytes (%) (Auto) 6, Neutrophils # (Auto) 6.9, Neutrophils (%) (Auto) 88H, Platelet Count 206, Potassium Level 4.0, Red Blood Count 3.32L, Red Cell Distribution Width 14.8H, Sodium Level 148H, Total Bilirubin 0.6, Total Protein 5.8L, White Blood Count 7.8 Microbiology 11/23/16 Blood Culture - Preliminary, Resulted Staph, Coag Neg (Back Shoe Operator) 11/26/16 MRSA Screen - Final, Complete MRSA not isolated Assessment/Plan Assessment/Plan Assess & Plan/Chief Complaint recurrent near obstructing esophageal cancer s/p laparoscopic gastrostomy tube placement. continue TF's thru g-tube. ambulate. palliative care consult. Diagnosis/Problems: Clinical Quality Measures DVT/VTE Risk/Contraindication: Risk Factor Score Per Nursin RFS Level Per Nursing on Admit: 4+=Very High LATASHA CADET MD Nov 28, 2016 11:23 am
--- NOTE | 2016-11-28 11:32 | Progress Note-Hospitalist ---
Progress Note HPI/CC on Admission The patient is an 81-year-old white male who was admitted from the emergency room yesterday with a complaint of fever and difficulty swallowing. The patient has a history of esophageal cancer. He had extensive surgery in 2012 in an attempt to cure. This was ultimately unsuccessful and he has had recurrence. He does his treatment through the [facility]. He had increasing symptoms of esophageal obstruction and difficulty eating. On Saturday11/19/16 he had an attempt at endoscopic placement of an esophageal stent. This was not successful. He then returned home and he and his report continuing and indeed increasing difficulties in swallowing. They were given ensure to take. It was up apparently to thick to pass in its usual constitution. He reports that liquids and semi-solids generally pass. He had an coughing spells following the Saturday encounter and was feared to have aspirated. His temperature was 102 at presentation to the emergency room. Chest x-ray confirmed the mediastinal mass. In addition there was an early infiltrate versus atelectasis in the right base. White count was relatively normal. He Progress Notes/Assess & Plan Date Seen 11/28/16 Diagonsis/Assessment & Plan Chart Review: WBC 7.8 Hgb 10.2 Na+ from 149 to 148 Creat still 1.8 No fever Vitals stable Pharmacy Review: Pt is on day # 6 of Zosyn and Levaquin. Recommends to DC Levaquin and do one more day of Zosyn. SW Review: Pt has spoken with [facility], but is unable to DC currently due to complications with feeding. [employer] Sewer is working with pt. Pt requires 2L of O2. Patient Interview: Pt states that he had nausea when he used the feeding tube. Pt requests that the nutrition be less sweet. Physical exam was stable, lung sounds improved. Pt denies having BM. Pt states that he has pain when he coughs, but feels that overall his pain is much better. 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 Dutton POD # 2 Aspiration pneumonia showing improvement on chest x-ray Hypernatremia due to dehydration due to poor oral intake since nothing by mouth Acute renal failure creatinine 1.87 due to dehydration placed on IV fluids by Dr. Dutton Hypoxia evaluating patient for home O2 Anemia of cancer Plan: Scopolamine patch Reduce sweetness in feeding tube solution if possible DC Levaquin One more day of Zosyn 2L O2 Continue steamfitter assistance DC tomorrow on Hospice Scribed by Brian Elizondo under the direct supervision of Dr. Steward. ALBERT STEWARD DO Nov 28, 2016 11:32 SW consult for home health post-DC via [place] in [place] Dietary consult Needs bolus feeds with free H2O DC tomorrow Scribed by Brian Elizondo under the direct supervision of Dr. Steward. ALBERT STEWARD DO Nov 28, 2016 11:32 Dietary consult Needs bolus feeds with free H2O DC tomorrow Scribed by Brian Elizondo under the direct supervision of Dr. Steward. ALBERT STEWARD DO Nov 28, 2016 11:32
[2016-11-28 16:30] VITALS: BP 160/91
[2016-11-29] VITALS: BP 160/98
[2016-11-29] MEDS: RT-ALBUTEROL/IPRATROPIUM 3 ML (DUONEB) VIAL INH SCH ×3 (02:14→10:54)
[2016-11-29] MEDS: POTASSIUM CHLORIDE INJ 40 MEQ in 1/2 NS IV SOLUTION 1,000 ML IV SCH ×2 (03:48→05:57)
[2016-11-29] MEDS: ONDANSETRON 4 MG/2 ML (SDV) Z0FRAN IVP PRN ×2 (04:16→11:06)
[2016-11-29] MEDS: PIPERACILLIN SODIUM/TAZOBACTAM 4.5 GM in NORMAL SALINE (BAXTER MINI) 100 ML IV SCH ×2 (04:17→11:10)
[2016-11-29 08:00] VITALS: BP 176/94
[2016-11-29] MEDS: PANTOPRAZOLE 40 MG/10 ML (PROTONIX) VIAL IV SCH (09:59)
[2016-11-29] MEDS: fentaNYL INJECTION 100 MCG/2 ML AMP IVP PRN (11:10)
--- NOTE | 2016-11-29 11:20 | Discharge Summary-Hospitalist ---
Diagnosis/Chief Complaint Date of Admission Nov 23, 2016 at 14:11 Date of Discharge Admission Diagnosis 1.aspiration pneumonia. 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 Dutton POD # 3 Aspiration pneumonia showing improvement on chest x-ray Hypernatremia due to dehydration due to poor oral intake since nothing by mouth Acute renal failure creatinine 1.87 due to dehydration placed on IV fluids by Dr. Nato Rose evaluating patient for home O2 Anemia of cancer Chart Review: WBC 7.8 Hgb 10.2 Na+ from 149 to 148 Creat still 1.8 No fever Vitals stable Pharmacy Review: Pt is on day # 6 of Zosyn and Levaquin. Recommends to DC Levaquin and do one more day of Zosyn. SW Review: Pt has spoken with [facility], but is unable to DC currently due to complications with feeding. International Bank Manager is working with pt. Pt requires 2L of O2. Patient Interview: Pt states that he had nausea when he used the feeding tube. Pt requests that the nutrition be less sweet. Physical exam was stable, lung sounds improved. Pt denies having BM. Pt states that he has pain when he coughs, but feels that overall his pain is much better. 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 Dutton POD # 2 Aspiration pneumonia showing improvement on chest x-ray Hypernatremia due to dehydration due to poor oral intake since nothing by mouth Acute renal failure creatinine 1.87 due to dehydration placed on IV fluids by Dr. Nato Rose evaluating patient for home O2 Anemia of cancer Plan: Scopolamine patch Reduce sweetness in feeding tube solution if possible DC Levaquin One more day of Zosyn 2L O2 Continue auto overhauler assistance DC tomorrow on Hospice Scribed by Brian Elizondo under the direct supervision of Dr. Keyes. Reason Hospital Visit/Course The patient is an 81-year-old white male who was admitted from the emergency room yesterday with a complaint of fever and difficulty swallowing. The patient has a history of esophageal cancer. He had extensive surgery in 2012 in an attempt to cure. This was ultimately unsuccessful and he has had recurrence. He does his treatment through the [facility]. He had increasing symptoms of esophageal obstruction and difficulty eating. On Saturday11/19/16 he had an attempt at endoscopic placement of an esophageal stent. This was not successful. He then returned home and he and his report continuing and indeed increasing difficulties in swallowing. They were given ensure to take. It was up apparently to thick to pass in its usual constitution. He reports that liquids and semi-solids generally pass. He had an coughing spells following the Saturday encounter and was feared to have aspirated. His temperature was 102 at presentation to the emergency room. Chest x-ray confirmed the mediastinal mass. In addition there was an early infiltrate versus atelectasis in the right base. White count was relatively normal. He Notes from 11/29/2016: Patient Interview: Pt states that pain has decreased, but still is present when coughing. Pt states that he had 3 BMs today. Physical exam was stable, lungs sound much improved. no fever, vitals stable, pleasant, much improved, preparing for shower Regular rate and rhythm, clear to auscultation bilaterally except for subtle wheeze in the right upper lobe but much improved from yesterday coarseness No edema Plan: SW consult regarding organizational needs of pt's family for DC on hospice Scribed by Brian Elizondo under the direct supervision of Dr. Keyes. Hospital course: Patient had a lengthy hospital course he was hospitalized for aspiration pneumonia on chest x-ray considering his esophageal obstruction. Patient improved during hospitalization and underwent exploratory and PEG tube placement with good results. Feeding tube regimen was initiated by dietary and patient was completing antibiotics but will need 3 additional doses of Levaquin at discharge. Hospice was consulted and he enrolled and Roxanol and Ativan were given at discharge but poor prognosis and everything we can do to support this patient in stage of his life will provide as much as possible. Discharge Summary Discharge Physical Examination Allergies: Coded Allergies: No Known Drug Allergies (Unverified , 04/08/12) Vitals & I&Os Vital Signs Date Time Temp Pulse Resp B/P Pulse Ox O2 Delivery O2 Flow Rate FiO2 11/29/16 10:54 93 Room Air 11/29/16 08:00 98.4 95 20 176/94 2.00 Hospital Course Labs (last 24 hrs) Microbiology 11/23/16 Blood Culture - Final, Complete Staph, Coag Neg (Automatic Stacker) 11/26/16 MRSA Screen - Final, Complete MRSA not isolated Discharge Home Medications: Active Scripts Active Levaquin (Levofloxacin) 750 Mg Tablet 750 Mg PO DAILY Lorazepam Intensol (Lorazepam) 2 Mg/1 Ml Oral.conc 2 Mg PO Q3HR PRN Morphine Sulfate Concentrate 20mg/ml (Morphine Sulfate) 100 Mg/5 Ml Solution 5 Mg PO Q2H PRN Reported Acetaminophen 500 Mg Tablet 1,000 Mg PO DAILY PRN Instructions to patient/family Please see electonic discharge instructions given to patient. Clinical Quality Measures DVT/VTE Risk/Contraindication: Risk Factor Score Per Nursin RFS Level Per Nursing on Admit: 4+=Very High ALBERT KEYES DO Nov 29, 2016 11:19
[2016-11-29] MEDS ORDERED: MORP100S3 PO (11:58)
[2016-11-29] MEDS ORDERED: LORA2ORA PO (11:58)
[2016-11-29] MEDS ORDERED: LEVO750T9 PO (11:58)
[2016-11-29 12:00] VITALS: BP 152/88
--- NOTE | 2016-11-29 12:00 | Discharge Instructions ---
Discharge Instructions Discharge Medications New, Converted or Re-Newed RX: RX on Chart New Medications: Levofloxacin (Levaquin) 750 Mg Tablet 750 MG PO DAILY #3 TAB Lorazepam (Lorazepam Intensol) 2 Mg/1 Ml Oral.conc 2 MG PO Q3HR PRN ANXIETY #30 ML Morphine Sulfate (Morphine Sulfate Concentrate 20mg/ml) 100 Mg/5 Ml Solution 5 MG PO Q2H PRN PAIN #30 ML Continued Medications: Acetaminophen (Acetaminophen) 500 Mg Tablet 1000 MG PO DAILY PRN PAIN TAB Patient Instructions Goal/Follow Up Appt: Hospice enrollment Activity & Diet Discharge Diet: Other Diet (feeding tube regimen) Activity as Tolerated: Yes ALBERT KEYES DO Nov 29, 2016 12:00
[2016-11-29 14:00] VITALS: BP 138/88
[2016-12-01] MEDS ORDERED: SCOPOLAMINE PATCH REMOVAL TP SCH (11:00)
== END 2016-11-29 14:00 | disposition hospice, home (50) | DRG 178 ==
LOC: EDUNIT# 12:04 → ER 12:08 → 4TH 14:11
PROVIDERS: ADMIT Internal Medicine; ATTEND Internal Medicine
PROC: 0DH64UZ Insertion of Feeding Device into Stomach, Percutaneous Endoscopic Approach (ICD-10-PCS; principal; 2016-11-26 10:43)
DX: J69.0 Pneumonitis due to inhalation of food and vomit (principal); C15.9 Malignant neoplasm of esophagus, unspecified; K22.2 Esophageal obstruction; N17.9 Acute kidney failure, unspecified; E87.0 Hyperosmolality and hypernatremia; E86.0 Dehydration; R09.02 Hypoxemia; D63.0 Anemia in neoplastic disease; Z66 Do not resuscitate; Z87.891 Personal history of nicotine dependence
CPT/HCPCS: 36415; 71010; 71020; 80053; 80202; 83605; 85007; 85025; 85027; 87040; 87081; 87804; 94640; 94760; 94761; 96365